=== PATIENT | male | born 1990 | race Caucasian/White ===

== ENCOUNTER 2017-03-11 23:47 | Emergency (ER) | payer BC ==
[2017-03-12 01:51] LABS: HEMOGLOBIN 16.1 gm/dl (14.0-17.5); RED BLOOD COUNT 5.37 M/UL (4.20-5.50); WHITE BLOOD COUNT 13.3 K/UL (4.5-11.0)
[2017-03-12 02:15] LABS: BUN/CREATININE RATIO 13 (0-10)
== END 2017-03-12 03:20 | disposition home or self-care (01) ==
LOC: ER1 23:47
PROVIDERS: Physician Assistant
DX: N13.2 Hydronephrosis with renal and ureteral calculous obstruction (principal)
CPT/HCPCS: 36415; 80053; 81001; 83690; 85025; 96361; 96374; 96375; 99284; J1885; J2270; J2405; J7030

== ENCOUNTER 2021-04-14 18:17 | Inpatient (IN) | payer OTHER ==
[~2021-04-14] VITALS: Ht 177.8 cm; Wt 127.0 kg
[2021-04-14 19:09] LABS: HEMOGLOBIN 17.2 gm/dl (14.0-17.5); RED BLOOD COUNT 5.7 M/UL (4.20-5.50); WHITE BLOOD COUNT 8.1 K/UL (4.5-11.0)
[2021-04-14 19:29] LABS: BUN/CREATININE RATIO 9 (0-10)
[2021-04-15] MEDS ORDERED: AMLODIPINE BESY10 MG PO (00:35)
[2021-04-15] MEDS ORDERED: PRAVASTATIN SOD40 MG PO (00:36)
[2021-04-15] MEDS ORDERED: PROTONIX40 MG PO (00:36)
[2021-04-15 20:01] LABS: HEMOGLOBIN 15.9 gm/dl (14.0-17.5); RED BLOOD COUNT 5.3 M/UL (4.20-5.50)
[2021-04-15 20:06] LABS: WHITE BLOOD COUNT 12.1 K/UL (4.5-11.0)
[2021-04-15 20:20] LABS: BUN/CREATININE RATIO 10 (0-10)
[2021-04-16 07:02] LABS: HEMOGLOBIN 15.4 gm/dl (14.0-17.5); RED BLOOD COUNT 5.37 M/UL (4.20-5.50); WHITE BLOOD COUNT 9.9 K/UL (4.5-11.0)
[2021-04-16 07:24] LABS: BUN/CREATININE RATIO 12 (0-10)
[2021-04-16] MEDS ORDERED: BRILINTA 90 MG90 MG PO (10:58)
[2021-04-16] MEDS ORDERED: LOPRESSOR 25 MG25 MG PO (10:58)
[2021-04-16] MEDS ORDERED: ATORVASTATIN CA20 MG PO (10:58)
[2021-04-16] MEDS ORDERED: ASPIRIN EC81 MG PO (10:59)
== END 2021-04-16 12:30 | disposition home or self-care (01) | DRG 247 ==
LOC: ER1 18:17 → PROG CARE 21:47 → CDU 21:47 → PROG CARE 04-15 02:07
PROVIDERS: Internal Medicine Interventional Cardiology; Physician Assistant; ADMIT Internal Medicine
PROC: 027034Z Dilation of Coronary Artery, One Artery with Drug-eluting Intraluminal Device, Percutaneous Approach (ICD-10-PCS; principal; 2021-04-15)
PROC: 4A023N7 Measurement of Cardiac Sampling and Pressure, Left Heart, Percutaneous Approach (ICD-10-PCS; 2021-04-15)
PROC: B2111ZZ Fluoroscopy of Multiple Coronary Arteries using Low Osmolar Contrast (ICD-10-PCS; 2021-04-15)
PROC: B24BZZ4 Ultrasonography of Heart with Aorta, Transesophageal (ICD-10-PCS; 2021-04-15)
DX: I21.4 Non-ST elevation (NSTEMI) myocardial infarction (principal); Z68.42 Body mass index [BMI] 45.0-49.9, adult; I25.10 Atherosclerotic heart disease of native coronary artery without angina pectoris; Z20.822 Contact with and (suspected) exposure to COVID-19; I10 Essential (primary) hypertension; E78.5 Hyperlipidemia, unspecified; E66.01 Morbid (severe) obesity due to excess calories; Z79.82 Long term (current) use of aspirin; Z83.3 Family history of diabetes mellitus; Z82.49 Family history of ischemic heart disease and other diseases of the circulatory system
CPT/HCPCS: ECHO; 36415; 71045; 80048; 80053; 80061; 82550; 82553; 83735; 83874; 84439; 84443; 84484; 84550; 85025; 85027; 85347; 85379; 85610; 85730; 86140; 93005; 93306; 96374; 99152; 99153; 99285; C1725; C1769; C1874; C1887; C1894; C9600; J0461; J1644; J2250; J2270; J3010; J3246; J7040; Q9967; U0002

== ENCOUNTER → 2021-06-20 | Outpatient (CLI) | payer OTHER ==
[~2021-06-20] MED LIST: AMLODIPINE BESY10 MG PO; ASPIRIN EC81 MG PO; ATORVASTATIN CA20 MG PO; BRILINTA 90 MG90 MG PO; LOPRESSOR 25 MG25 MG PO; PRAVASTATIN SOD40 MG PO; PROTONIX40 MG PO
== END ==
LOC: HEART 5 06-16 07:30
DX: I20.9 Angina pectoris, unspecified (principal)
CPT/HCPCS: 78452; A9502